=== PATIENT | female | born 1965 | race Caucasian/White ===

== ENCOUNTER → 2016-07-04 | Outpatient (CLI) | payer BC ==
[~2016-07-04] MED LIST: CHOL1CAP57 PO; CYAN100020 PO; ECHITAB3 PO; IBUP-1050 PO; LISI-461 PO; MULT-506 PO
--- NOTE | 2016-07-04 16:24 | MAMMOGRAPHY REPORT ---
BILATERAL DIGITAL SCREENING MAMMOGRAM TOMOSYNTHESIS WITH CAD: 07/04/2016 CLINICAL HISTORY: Routine screening. Patient has no complaints. TECHNIQUE: Breast tomosynthesis in addition to standard 2D mammography was performed. Current study was also evaluated with a Computer Aided Detection (CAD) system. COMPARISON: Comparison is made to exams dated: 06/29/2015 mammogram, 06/13/2013 mammogram, 06/20/2014 m ammogram, 06/05/2012 mammogram, 06/03/2011 mammogram, and 05/31/2010 mammogram - [facility] nter. BREAST COMPOSITION: The tissue of both breasts is heterogeneously dense, which may obscure small ma sses. FINDINGS: There is questionable architectural distortion in the superior posterior left breast, onl y seen on the MLO view, for which additional spot compression tomosynthesis views and possibly ultra sound are recommended. There are stable scattered benign-appearing rounded coarse calcifications throughout the right great er than left breast. No other suspicious mass, architectural distortion or cluster of microcalcific ations is seen. IMPRESSION: ACR BI-RADS CATEGORY 0: INCOMPLETE EVALUATION: NEED ADDITIONAL IMAGING EVALUATION The questionable architectural distortion in the superior, posterior left breast needs additional ev aluation. The patient will be called to schedule an appointment. Approximately 10% of breast cancers are not detected with mammography. A negative mammographic repor t should not delay biopsy if a clinically suggestive mass is present. Rhonda Bacon M.D. ay/:07/04/2016 15:46:14 Catalogue Illustrator: Shelby PETERSEN(Kelsi)([place]), [facility] letter sent: Addl Imaging 0 BI-RADS Code: ACR BI-RADS Category 0: Incomplete Evaluation: Need Additional Imaging Evaluation
== END | disposition home or self-care (01) ==
LOC: C.MAMM 07:55
PROVIDERS: ATTEND Obstetrics & Gynecology
DX: Z12.31 Encounter for screening mammogram for malignant neoplasm of breast (principal); R92.8 Other abnormal and inconclusive findings on diagnostic imaging of breast

== ENCOUNTER → 2016-07-13 | Outpatient (CLI) | payer BC ==
--- NOTE | 2016-07-13 13:56 | MAMMOGRAPHY REPORT ---
UNILATERAL LEFT DIGITAL DIAGNOSTIC MAMMOGRAM TOMOSYNTHESIS: 07/13/2016 CLINICAL HISTORY: Callback from screening mammogram for questionable left breast architectural disto rtion. TECHNIQUE: Breast tomosynthesis in addition to standard 2D mammography was performed. Spot veronica rolf left MLO 2-D and tomosynthesis images and spot compression ML tomosynthesis images including C views were obtained. COMPARISON: Comparison is made to exams dated: 07/04/2016 mammogram, 06/29/2015 mammogram, 06/20/2014 m ammogram, 06/13/2013 mammogram, 06/05/2012 mammogram, and 06/03/2011 mammogram - [facility]. BREAST COMPOSITION: The tissue of the left breast is heterogeneously dense, which may obscure small masses. FINDINGS: The previously described area of questionable architectural distortion seen within the le ft superior breast on the MLO view does not persist on the additional views. Normal fibroglandular tissue is seen on this region on the additional views, with appearance of this [facility]. No suspicious mass or architectural distortion is noted on the additional tomosynthesis images. IMPRESSION: ACR BI-RADS CATEGORY 2: BENIGN The questionable left superior breast architectural distortion does not persist on the additional vi ews. Findings are benign and felt to represent normal fibroglandular tissue. There is no mammograp hic evidence of malignancy. A 1 year screening mammogram is recommended. The patient has been verba lly notified of the results. Approximately 10% of breast cancers are not detected with mammography. A negative mammographic repor t should not delay biopsy if a clinically suggestive mass is present. Ratna Gonzalez M.D. /:07/13/2016 10:20:00 Network Technical Analyst: Shelby Fong [facility] letter sent: Normal 1/2 BI-RADS Code: ACR BI-RADS Category 2: Benign
== END | disposition home or self-care (01) ==
LOC: C.MAMM 09:45
PROVIDERS: ATTEND Obstetrics & Gynecology
DX: R92.8 Other abnormal and inconclusive findings on diagnostic imaging of breast (principal)

== ENCOUNTER → 2017-07-11 | Outpatient (CLI) | payer BC ==
--- NOTE | 2017-07-12 07:49 | MAMMOGRAPHY REPORT ---
BILATERAL DIGITAL SCREENING MAMMOGRAM TOMOSYNTHESIS WITH CAD: 07/11/2017 CLINICAL HISTORY: Routine screening. Patient has no complaints. TECHNIQUE: Breast tomosynthesis in addition to standard 2D mammography was performed. Current study was also evaluated with a Computer Aided Detection (CAD) system. COMPARISON: Comparison is made to exams dated: 07/13/2016 mammogram, 07/04/2016 mammogram, 06/29/2015 ma mmogram, 06/20/2014 mammogram, 06/13/2013 mammogram, and 06/05/2012 mammogram - [facility] nter. BREAST COMPOSITION: The tissue of both breasts is heterogeneously dense, which may obscure small mas ses. FINDINGS: There are scattered round and punctate microcalcifications bilaterally. No suspicious spic ulated or irregular mass, focal area of architectural distortion, asymmetry or cluster of suspicious microcalcifications is seen. IMPRESSION: ACR BI-RADS CATEGORY 1: NEGATIVE There is no mammographic evidence of malignancy. A 1 year screening mammogram is recommended. The pa tient will receive written notification of the results. Approximately 10% of breast cancers are not detected with mammography. A negative mammographic report should not delay biopsy if a clinically suggestive mass is present. Rhonda Bacon M.D. ay/:07/11/2017 16:08:32 Utility Tractor Operator: Sindhu OLSEN)(M), [facility] letter sent: Normal 1/2 BI-RADS Code: ACR BI-RADS Category 1: Negative
== END | disposition home or self-care (01) ==
LOC: C.MAMM 15:40
PROVIDERS: ATTEND Obstetrics & Gynecology
DX: Z12.31 Encounter for screening mammogram for malignant neoplasm of breast (principal)